=== PATIENT | male | born 1995 | race Caucasian/White ===

== ENCOUNTER 2023-12-04 15:00 | Emergency (ER) | payer BC, SELFPAY ==
[2023-12-04 15:04] VITALS: BP 120/72; PULSE 87; RESP 16; TEMP 37.6; O2SAT 97
--- NOTE | 2023-12-04 15:17 | ED.GENADUL_ITS ---
HPI General Mode of arrival: ambulatory . Date/Time Provider Initiated Documentation: 12/04/23 15:08 . Limitations to Documentation: no limitations . Information obtained by: patient . History of Present Illness 28 year old M presents to the emergency department with the chief complaint of left wrist pain s/p fall snowboarding, described as moderate, Quality is described as aching, and is localized to the left and upper extremity. Patient reports no radiation. Patient started experiencing this hour(s) (2) and it has been constant. Rest improves symptom(s), Movement worsens symptoms . Patient notes no other symptoms.. Patient did receive the following treatments prior to arrival, none Related Data Home Medications Medication Instructions Recorded Confirmed methylphenidate HCl 18 mg 18 mg PO DAILY 12/04/23 12/04/23 tablet,extended release 24 hr (Concerta) mirtazapine 30 mg tablet 30 mg PO DAILY 12/04/23 12/04/23 Allergies Allergy/AdvReac Type Severity Reaction Status Date / Time No Known Allergies Allergy Unverified 12/04/23 15:07 General Stated Complaint: Orthopedic ZAIN: 3 Review of Systems All systems reviewed & are unremarkable except as noted in HPI and below Constitutional Constitutional: Denies chills, Denies fever(s) and Denies weakness Cardiovascular Cardiovascular: Denies chest pain and Denies dyspnea Respiratory Respiratory: Denies cough and Denies dyspnea Gastrointestinal Gastrointestinal: Denies abdominal pain, Denies nausea and Denies vomiting Integumentary/Breasts Skin/Breast: Denies rash Neurologic Neurologic: Denies weakness Exam Const General: no acute distress Orientation: alert HENME Head: normal to inspection Ears: external ears normal General nose exam: external nose normal Mouth: moist mucous membranes Eyes General: appearance normal, both eyes and all related structures Neck Neck: normal visual inspection Resp Effort & Inspection: normal respiratory effort and able to speak in complete sentences Cardio Rate: regular rate Skin General skin exam: no rashes or lesions noted Neuro General: patient alert and patient oriented x3 Extrem General: capillary refill normal Psych Mental Status: mental status grossly normal Course Vital Signs Vital signs: Vital Signs Temperature 37.6 C H 12/04/23 15:04 Pulse 87 12/04/23 15:04 Respiratory Rate 16 12/04/23 15:04 Blood Pressure 120/72 12/04/23 15:04 Pulse Oximetry 97 12/04/23 15:04 Temperature 37.6 C H 12/04/23 15:04 Temperature Source Temporal Artery Scan 12/04/23 15:04 Pulse 87 12/04/23 15:04 Respiratory Rate 16 12/04/23 15:04 Respiratory Effort Normal, Non-Labored 12/04/23 15:08 Blood Pressure 120/72 12/04/23 15:04 Blood Pressure Position Sitting 12/04/23 15:04 Pulse Oximetry 97 12/04/23 15:04 Oxygen Delivery Method Room Air 12/04/23 15:04 Oxygen Flow Rate 0 12/04/23 15:04 Medical Decision Making 28 yo male who denies chronic medical problems comes in with left wrist pain. HE states today was his first day trying to snowboard. HE was wearing his helmet but throughout the day repeatedly would fall on his buttocks and his left wrist. Denies hitting his head or loc. He is caox4 speaking clearly and appears well. He denies headache, neck pain, back pain, chest or abdomen pain. HE has te nderness on the radial side of his wrist with limited rom due to pain, no tenderness in the hand, intact sensation and pulses. Mild tenderness to the mid forearm. No tenderness to the elbow, humerus or shoulder. Suspect sprain of the wrist vs fracture, will obtain xrays. pt stable with no new pain, xrays on my read and vrad read negative. No snuffbox tenderness, will provide splint and advised to wear it until pain free and if pain not improving this weekto have it reevaluated with his pcp, return precautions given Differential Diagnosis Differential Diagnosis: sprain,strain, contusion Imaging Data Radiologic Study: Attestation: I personally reviewed and interpreted this imaging study as follows: Imaging: X-Ray My impression: no acute findings forearm xray Radiologic Study #2: Attestation: I personally reviewed and interpreted this imaging study as follows: Imaging: X-Ray My impression: no acute findings wrist xray Quality:SDOH Health Related Social Needs: No Data to Display PFSH All Active Problems (Updated 12/04/23 @ 15:56 by Gibson Rosas MD) Left wrist sprain (Acute) Social History Smoking/Tobacco Use Status: Never Smoking risk assessment performed?: Yes Alcohol Intake: current Alcohol Intake frequency: a few times a month Drug use: Daily Substance use type: marijuana Do you feel safe at home: Yes Do you feel safe in your relationship?: Yes PAWSS Have you Been Recently Intoxicated or Drunk Within the Last 30 days?: No Have you Ever Experienced Previous Episodes of Alcohol Withdrawal?: No Have you ever Experienced Withdrawal Seizures?: No Have you ever Experienced Delirium Tremens(DT)s?: No Have you ever undergone Alcohol Rehabilitation Treatment (i.e, inpt ot outpatient treatment programs)?: No Have you ever Experienced Blackouts?: No Have you ever Combined Alcohol with other Downers within the last 90 days?: No Have you ever Combined Alcohol with any other Substance of Abuse during the last 90 days?: No Positive Blood Alcohol level on Presentation? [PCS.BAL]: No Evidence of Increased Autonomic Activity (i.e. HR>120, tremor, sweating, agitation, nausea)?: No Result: 0 Discharge Plan Disposition Patient Disposition: Home Discharge Details Clinical Impression: Left wrist sprain Primary Care Provider: Michelle,[facility] ED Provider: Gibson Rosas Home Meds and New Rx's Prescriptions: Continued mirtazapine 30 mg tablet 30 mg PO DAILY methylphenidate HCl [Concerta] 18 mg tablet extended release 24hr 18 mg PO DAILY Discharge Instructions Instructions: Wrist Sprain (ED) Additional Instructions: your xrays did not show a fracture (broken bone) I recommend wearing the splint until pain free if you still have pain in one week have your wrist reevaluated if you feel more ill or develop new symptoms such as severe head pain or chest pain return to the emergency department
[2023-12-04] MEDS: Ibuprofen 600 MG TAB PO (15:22)
--- NOTE | 2023-12-04 15:30 | DI.RAD_ITS ---
Exam(s) XR FOREARM LT EXAM: XR FOREARM LT CLINICAL HISTORY: pain s/p fall. TECHNIQUE: 2D digital imaging was performed. COMPARISON: No exams were available for comparison FINDINGS: 3 views There is no evidence of fracture or dislocation. No radiopaque foreign body. No osseous lesions. N o elbow joint effusion. IMPRESSION: No acute osseous findings in the forearm bones. DATA REPOSITORY: RADIATION DOSE DELIVERED:
--- NOTE | 2023-12-04 15:30 | DI.RAD_ITS ---
Exam(s) XR WRIST LT COMPLETE EXAM: XR WRIST LT COMPLETE CLINICAL HISTORY: pain s/p fall. TECHNIQUE: 2D digital imaging was performed. COMPARISON: No exams were available for comparison FINDINGS: 3 views No evidence of fracture nor dislocation. No significant ulnar variance. Bone density normal. No os seous lesions. Scapholunate distance normal. IMPRESSION: No acute osseous findings in the wrist. DATA REPOSITORY: RADIATION DOSE DELIVERED:
--- NOTE | 2023-12-04 15:52 | DI.VRAD_ITS ---
PROCEDURE INFORMATION: Exam: XR Left Forearm Exam date and time: 12/04/2023 3:25 PM Age: 28 years old Clinical indication: Other: Pain S/P fall TECHNIQUE: Imaging protocol: Radiologic exam of the left forearm. Views: 2 views. COMPARISON: No relevant prior studies available. FINDINGS: Bones/joints: There is no evidence of acute fracture.There is no evidence of malalignment or dislocation. Soft tissues: Normal. IMPRESSION: There is no evidence of acute fracture.There is no evidence of malalignment or dislocation. Dictated and Authenticated by: Syed Trivedi MD. Ordering:JOSE Arreaga MD
--- NOTE | 2023-12-04 15:53 | DI.VRAD_ITS ---
PROCEDURE INFORMATION: Exam: XR Left Wrist Exam date and time: 12/04/2023 3:27 PM Age: 28 years old Clinical indication: Other: Pain S/P fall TECHNIQUE: Imaging protocol: Radiologic exam of the left wrist. Views: 3 or more views. COMPARISON: CR XR FOREARM LT 12/04/2023 3:25 PM FINDINGS: Bones/joints: There is no evidence of acute fracture.There is no evidence of malalignment or dislocation. Soft tissues: Soft tissue swelling of the wrist IMPRESSION: There is no evidence of acute fracture.There is no evidence of malalignment or dislocation. Dictated and Authenticated by: Syed Trivedi MD. Ordering:JOSE Arreaga MD
== END 2023-12-04 16:12 | disposition home or self-care (01) ==
PROVIDERS: Emergency Provider Emergency Medicine
DX: S63.502A Unspecified sprain of left wrist, initial encounter (principal); W00.0XXA Fall on same level due to ice and snow, initial encounter; Y93.23 Activity, snow (alpine) (downhill) skiing, snowboarding, sledding, tobogganing and snow tubing; Y92.838 Other recreation area as the place of occurrence of the external cause
CPT/HCPCS: 99283; 73090; 73110